=== PATIENT | male | born 1970 ===

== ENCOUNTER 2021-08-29 11:49 | Emergency (ER) | payer SELFPAY ==
--- NOTE | 2021-08-29 15:07 | Emergency Department Report ---
ED General Adult HPI - General Chief complaint: Extremity Injury, Upper Stated complaint: ELBOW Time Seen by Provider: 08/29/21 13:05 Source: patient, family Mode of arrival: Ambulatory Limitations: Language Barrier - History of Present Illness Initial comments: 51-year-old male patient presents with complaints of sudden onset of left elbow pain, redness, and swelling x4 days. He denies any injury, penetrating injuries, or IV drug use. He rates his pain as 8/10 in severity and states it mainly occurs with movement of the elbow and to touch. No past medical history per patient. NKDA per patient Severity scale (0 -10): 6 - Related Data Previous Rx's Medication Instructions Recorded Last Taken Type Clindamycin [Clindamycin CAP] 300 mg PO Q6H 10 Days #40 capsule 08/29/21 Unknown Rx Naproxen 500 mg PO BID PRN #20 tablet 08/29/21 Unknown Rx predniSONE [Deltasone] 20 mg PO BID 3 Days #6 tab 08/29/21 Unknown Rx Allergies Allergy/AdvReac Type Severity Reaction Status Date / Time No Known Allergies Allergy Unverified 08/29/21 11:50 ED Review of Systems ROS: Stated complaint: ELBOW Other details as noted in HPI ED Past Medical Hx - Past Medical History Previous Medical History?: No - Surgical History Past Surgical History?: No - Medications Home Medications: Home Medications Medication Instructions Recorded Confirmed Last Taken Type Clindamycin [Clindamycin CAP] 300 mg PO Q6H 10 Days #40 capsule 08/29/21 Unknown Rx Naproxen 500 mg PO BID PRN #20 tablet 08/29/21 Unknown Rx predniSONE [Deltasone] 20 mg PO BID 3 Days #6 tab 08/29/21 Unknown Rx ED Physical Exam - General Limitations: Language Barrier General appearance: alert, in no apparent distress - Head Head exam: Present: atraumatic, normocephalic - Eye Eye exam: Present: normal appearance. Absent: scleral icterus - Neck Neck exam: Present: normal inspection - Respiratory Respiratory exam: Absent: respiratory distress - Cardiovascular Cardiovascular Exam: Present: regular rate, normal rhythm - Expanded Upper Extremity Exam Left Elbow exam: Present: full ROM, tenderness, swelling (Minimal), erythema. Absent: abrasion, laceration, ecchymosis, dislocation, effusion Forearm Wrist exam: Present: normal inspection Hand Wrist exam: Present: normal inspection Vascular: Absent: pulse deficit radial art, pulse deficit ulnar art - Neurological Exam Neurological exam: Present: alert, oriented X3 - Psychiatric Psychiatric exam: Present: normal affect, normal mood - Skin Skin exam: Present: warm, dry, intact. Absent: rash ED Course Vital Signs 08/29/21 08/29/21 11:52 16:41 Temperature 98.3 F Pulse Rate 75 72 Respiratory 16 15 Rate Blood Pressure 154/82 138/84 [Left] O2 Sat by Pulse 98 99 Oximetry ED Medical Decision Making - Radiology Data Radiology results: report reviewed LEFT ELBOW 3 VIEW(S) INDICATION / CLINICAL INFORMATION: pain, swelling, redness, no injury COMPARISON: None available. FINDINGS: BONES / JOINT(S): No acute fracture or subluxation. No significant arthritis. SOFT TISSUES: No significant abnormality. ADDITIONAL FINDINGS: None. - Medical Decision Making 51-year-old male patient presents with complaints of sudden onset of left elbow pain, redness, and swelling x4 days. He denies any injury, penetrating injuries, or IV drug use. He rates his pain as 8/10 in severity and states it mainly occurs with movement of the elbow and to touch. No past medical history per patient. NKDA per patient Bursitis versus cellulitis. Will cover for both with prednisone and clindamycin. Recommend follow-up with PCP in 3 to 5 days for recheck. X-ray of the elbows negative for any acute abnormalities. Vitals are within normal limits and patient is well-appearing and stable for discharge home. Discussed in detail signs and symptoms that should prompt immediate return to the ED with patient verbalized understanding Critical care attestation.: If time is entered above; I have spent that time in minutes in the direct care of this critically ill patient, excluding procedure time. ED Disposition Clinical Impression: Left elbow pain Disposition: HOME / SELF CARE / HOMELESS Is pt being admited?: No Condition: Stable Instructions: Cellulitis, Adult, [id number] Additional Instructions: Bursitis is an inflammation or irritation of the bursae (plural of "bursa"). The bursae are fluid-filled sacs around joints and tendons, which decrease friction from movement and provide a cushion between bones, tendons, muscles, and skin. Bursitis can be rapid in onset (acute) or build up slowly over time (chronic). Acute bursitis is often the result of an injury, infection, or inflammatory condition. Chronic bursitis often follows a long period of repetitive use, motion, or compression. Bursitis can involve almost any joint in the body, although some areas are more commonly affected than others. BURSITIS CAUSES Causes of bursitis include: ?Injury, such as from a fall or hit; this usually causes bleeding into a bursa. People who take anticoagulant medications (blood thinners) to prevent or treat blood clots are at higher risk for this condition. ?Infection resulting from bacteria entering the body through a cut or scrape in the skin. ?Gout or other crystal diseases. ?Certain types of arthritis, like rheumatoid arthritis or psoriatic arthritis. ?Prolonged pressure, which can result from kneeling, sitting, or leaning on a particular joint for a long period. ?Strain or overuse from repeating the same motion many times ?Joint stress from an abnormal gait; for example, walking unevenly because one leg is shorter than the other BURSITIS SYMPTOMS Common symptoms of bursitis include pain and/or swelling at the affected site. Visible swelling is more common in superficial bursae that are closer to the surface of the skin, such as those around the elbows, kneecaps, and heels. Swelling is less commonly a feature of bursitis that affects deep structures, such as the bursae of the shoulders, hips, and inner knees. In acute bursitis, there are often features of inflammation at the bursa. Pain is a universal feature, and typically localizes directly over the affected bursa; active motion (when the person moves or bends the joint) also causes pain if the motion stretches the affected bursa. Acute bursitis of a superficial bursa is often accompanied by redness, warmth, and swelling. People with chronic bursitis may have swelling, but usually only if a superficial bursa is affected. Pain is present with chronic bursitis of any location, but the intensity of pain can vary. These patients may also have limited range of motion because pain from the bursitis restricts motion of the nearby joint and surrounding muscles. Bursitis caused by an infection is called "septic bursitis." Symptoms may include pain, swelling, warmth, and redness around the affected joint. Fever may also be present. This is a potentially serious condition since infection can spread to nearby joints, bone, or the blood. Bursitis caused by gout is not infection-related but can mimic septic bursitis in the intensity of inflammation. Specific symptoms of bursitis vary depending on the area that is affected. (See 'Types of bursitis' below.) BURSITIS DIAGNOSIS Diagnosing bursitis involves a physical examination, a review of your symptoms, and sometimes tests. If your health care provider suspects infection or crystal disease (for example, gout), they may use a syringe and needle to remove a sample of fluid from the affected bursa. This is called "aspiration." The fluid can then be examined under a microscope for crystals, bacteria, and white blood cells. Imaging such as X-ray, magnetic resonance imaging (MRI), or ultrasound is not usually needed to diagnose bursitis. However, it can help in some situations, such as when other problems need to be ruled out (for example, a tear in the cartilage or ligament). It can also be useful if your doctor needs to remove fluid from a bursa near other areas that could be injured, such as nerves or blood vessels. Imaging can allow the doctor to visualize where the needle is going. BURSITIS TREATMENT Bursitis treatment focuses on relieving inflammation and pain, treating infection (if present), maintaining range of motion, and preventing complications and future recurrence. Pain-relief medication In most cases, nonsteroidal antiinflammatory drugs (NSAIDs) can help relieve pain and inflammation. NSAIDs include ibuprofen (sample brand names: Advil, Motrin) and naproxen (sample brand name: Aleve); other NSAIDs, as well as higher doses, are also available by prescription. Topical NSAIDs (for example, diclofenac gel) may be an appropriate option for patients who cannot tolerate oral NSAIDs. NSAIDs are not appropriate for everyone. For example, people who take anticoagulants (blood thinners) or have a history of kidney disease, heart disease, high blood pressure, or bleeding stomach ulcers should talk with their health care provider about whether they can safely take NSAIDs. (See "Patient education: Nonsteroidal antiinflammatory drugs (NSAIDs) (Beyond the Basics)".) Protecting the joints It is important to protect the affected joints in order to rest the affected area and help the bursae to heal. Bursal protection can also prevent the bursitis from getting worse or recurring. Examples of joint protection include: ?Avoiding or modifying activities that cause pain ?The use of pads or cushions for people who have to kneel or sit frequently ?Modifying footwear to reduce pressure on the back of the heel (eg, cutting a "V"-shaped groove into the back of a shoe; using a pad inside the shoe to lift the heel) ?Custom-fitted devices worn over the elbows to protect them and prevent fluid from building up again Other measures Ice can help relieve pain, particularly for bursitis affecting superficial areas like the elbow, kneecap, and heel. Heat (eg, a heating pad) may be more effective for deeper forms of bursitis, such as the hip, shoulder, or inner knee. In many cases, physical therapy can help treat symptoms of bursitis and prevent future recurrence. The optimal exercises depend on the type and severity of bursitis, but may involve stretching, strengthening, or working to improve (and maintain) range of motion. Rarely, surgery is required to remove all or part of the affected bursa. Treating infection Septic bursitis is a potentially very serious condition that needs to be addressed quickly. It is treated with antibiotics and (when possible) by draining any infected fluid from the bursa. The choice of which antibiotic to use, and for how long, is based on the type and severity of infection. For mild cases, a few weeks of oral antibiotics may be enough; for more severe infection, intravenous (IV) antibiotics (given in the hospital) may be required. When it is possible to drain infected fluid, this is done using a needle and syringe. This happens in a doctor's office, until the infection has resolved, which can mean repeating the procedure several times over multiple days. Rarely, surgery is indicated in cases where drainage and antibiotics cannot cure the infection. WHERE TO GET MORE INFORMATION Your healthcare provider is the best source of information for questions and concerns related to your medical problem. This article will be updated as needed on our web site ([email or web address]). Related topics for patients, as well as selected articles written for healthcare professionals, are also available. Some of the most relevant are listed below. Patient level information [facility] offers two types of patient education materials. The Basics The Basics patient education pieces answer the four or five neri questions a patient might have about a given condition. These articles are best for patients who want a general overview and who prefer short, [id number] materials. Prescriptions: Clindamycin [Clindamycin CAP] 300 mg PO Q6H 10 Days #40 capsule predniSONE [Deltasone] 20 mg PO BID 3 Days #6 tab Naproxen 500 mg PO BID PRN #20 tablet PRN Reason: pain Referrals: [facility] [Provider Group] - 3-5 Days Forms: Work/School Release Form(ED) Print Language: UPPER SORBIAN
--- NOTE | 2021-08-29 15:32 | XRay Report ---
LEFT ELBOW 3 VIEW(S) INDICATION / CLINICAL INFORMATION: pain, swelling, redness, no injury COMPARISON: None available. FINDINGS: BONES / JOINT(S): No acute fracture or subluxation. No significant arthritis. SOFT TISSUES: No significant abnormality. ADDITIONAL FINDINGS: None. Signer Name: Jasper Leon MD Signed: 08/29/2021 3:27 PM Workstation Name: [id number]
[2021-08-29 16:41] VITALS: BP 138/84
== END 2021-08-29 16:45 | disposition home or self-care (01) ==
LOC: ED 11:49
DX: M25.522 Pain in left elbow (principal); Z79.899 Other long term (current) drug therapy
CPT/HCPCS: 99283